=== PATIENT | male | born 1995 | race Caucasian/White ===

== ENCOUNTER 2018-01-02 11:13 | Emergency (ER) | payer SELFPAY ==
[2018-01-02] MEDS ORDERED: KETOROLAC 30 MG/ML INJ ONE (11:47)
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
== END 2018-01-02 12:48 | disposition home or self-care (01) ==
LOC: ER 11:13
DX: R07.81 Pleurodynia (principal); V59.50XA Passenger in pick-up truck or van injured in collision with unspecified motor vehicles in traffic accident, initial encounter; F17.210 Nicotine dependence, cigarettes, uncomplicated; Z88.1 Allergy status to other antibiotic agents
CPT/HCPCS: 71045; 96372; 99284